=== PATIENT | female | born 1980 | race Caucasian/White ===

== ENCOUNTER 2021-06-29 14:04 | Outpatient (CLI) | payer OTHER, SELFPAY | END 2021-06-29 14:05 | disposition home or self-care (01) | LOC: ANHBWCAUD 14:04 | PROVIDERS: PCP Internal Medicine; Visit Provider Otolaryngology | DX: H91.93 Unspecified hearing loss, bilateral (principal) | CPT/HCPCS: 92557; 92567 ==

== ENCOUNTER → 2022-07-30 14:07 | Outpatient (CLI) | payer OTHER, SELFPAY ==
--- NOTE | ~2022-07-30 | US_ITS ---
EXAMINATION: US pelvic complete w TV DATE: 07/30/2022 14:32 INDICATION: Abnormal uterine bleeding Comparison:05/03/2016 TECHNIQUE: Multiple transabdominal and endovaginal sonographic images of the pelvis performed. FINDINGS: The uterus measures 7.5 x 3.5 x 5.5 cm. There is an IUD located in the endometrium. The end ometrial complex measures 4. The right ovary measures 3.2 x 1.7 x 1.6 cm and the left ovary measures 2.5 x 2 x 2.6 cm. There are small follicles in each ovary. Normal doppler signal in both ovaries. There is no free fluid in the pelvis. There are no abnormal masses seen on either side. IMPRESSION: 1. Unremarkable pelvic ultrasound. IUD in expected position within the endometrium. Reviewed, dictated and finalized at location [facility]. IMPRESSION: 1. Unremarkable pelvic ultrasound. IUD in expected position within the endometr ium.
== END ==
PROVIDERS: PCP Nurse Practitioner; Visit Provider Nurse Practitioner
DX: N93.8 Other specified abnormal uterine and vaginal bleeding (principal); Z97.5 Presence of (intrauterine) contraceptive device
CPT/HCPCS: 76830; 76856

== ENCOUNTER 2024-08-06 13:22 | Outpatient (CLI) | payer OTHER, SELFPAY ==
--- NOTE | ~2024-08-06 | CT_ITS ---
EXAMINATION: CT sinus wo con DATE: 08/06/2024 13:49 INDICATION: Chronic sinusitis TECHNIQUE: Computed tomography (CT) of the paranasal sinuses was performed without contrast. Iterativ e reconstruction technique was employed. Exam dose: 279.81 mGy-cm total exam DLP. COMPARISON: None FINDINGS: Mild rightward deviation of nasal septum. 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 Bilateral Bradly cells. The ostiomeatal units are patent. Approximately 6.9 x 13.6 mm lucent lesion of the posterior central alveolar ridge at the posterior ma rgin of the upper right and left central and lateral incisors is noted, with loss of posterior cortex . No other lytic or osteoblastic lesions are identified. The paranasal sinuses and mastoid air cells are normally developed and aerated. Middle and inner ear apparatus appear normal bilaterally. 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 Reviewed, dictated and finalized at location [facility].
== END 2024-08-06 13:23 | disposition home or self-care (01) ==
PROVIDERS: Visit Provider Otolaryngology
DX: J32.9 Chronic sinusitis, unspecified (principal)
CPT/HCPCS: 70486